=== PATIENT | female | born 1975 | race Caucasian/White ===

== ENCOUNTER 2017-06-05 11:05 | Emergency (ER) | payer OTHER ==
[~2017-06-05] VITALS: Ht 162.5 cm; Wt 55.3 kg
[~2017-06-05 11:05] MED LIST: BACTRIM DS 8001 TA1 PO; CIPRO500 MG PO; CITALOPRAM40 MG PO; EES400 MG PO; FLUOXETINE HYDR20 M1 PO; LORAZEPAM1 MG PO; PYRIDIUM200 M1 PO; PYRIDIUM200 MG PO; REQUIP2 MG PO; VICODIN HP 6601 TAB PO
[2017-06-05 11:13] VITALS: BP 119/65
[2017-06-05] MEDS ORDERED: NAPROSYN500 MG PO (11:35)
== END 2017-06-05 15:14 | disposition home or self-care (01) ==
LOC: ED 11:05
DX: S93.601A Unspecified sprain of right foot, initial encounter (principal); F17.200 Nicotine dependence, unspecified, uncomplicated; Z79.899 Other long term (current) drug therapy; X58.XXXA Exposure to other specified factors, initial encounter; Y93.89 Activity, other specified; Y92.89 Other specified places as the place of occurrence of the external cause; Y99.8 Other external cause status